=== PATIENT | male | born 1955 | race Caucasian/White ===

== ENCOUNTER 2017-08-20 13:28 | Emergency (ER) | payer OTHER ==
[~2017-08-20] VITALS: Ht 175.3 cm; Wt 102.0 kg
[2017-08-20 13:38] VITALS: BP 151/83
== END 2017-08-20 14:35 | disposition home or self-care (01) ==
LOC: ED 14:00
DX: K02.9 Dental caries, unspecified (principal); K08.89 Other specified disorders of teeth and supporting structures
CPT/HCPCS: 99283

== ENCOUNTER 2017-11-21 13:37 | Emergency (ER) | payer MEDICAID, OTHER ==
[~2017-11-21] VITALS: Ht 175.3 cm; Wt 107.0 kg
[2017-11-21 14:55] VITALS: BP 141/82
== END 2017-11-21 14:58 | disposition home or self-care (01) ==
LOC: ED 14:52
DX: R91.8 Other nonspecific abnormal finding of lung field (principal); J44.1 Chronic obstructive pulmonary disease with (acute) exacerbation
CPT/HCPCS: 71046; 99284

== ENCOUNTER 2018-03-22 13:03 | Emergency (ER) | payer SELFPAY ==
[~2018-03-22] VITALS: Ht 175.3 cm; Wt 110.0 kg
[2018-03-22 13:11] VITALS: BP 143/86
[2018-03-22 13:25] LABS: BASOPHILS # (AUTO) 0.04 x10^3/uL (0-0.1); BASOPHILS % (AUTO) 1 % (0-1); EOSINOPHILS # (AUTO) 0.08 x10^3/uL (0-0.4); EOSINOPHILS % (AUTO) 1 % (1-7); LYMPHOCYTES # (AUTO) 2.25 x10^3/uL (1-3.4); LYMPHOCYTES % (AUTO) 32 % (22-44); MD NO; MEAN CORPUSCULAR HEMOGLOBIN 28.6 pg (27.5-34.5); MEAN CORPUSCULAR HGB CONC 33.8 g/dL (33.2-36.2); MEAN CORPUSCULAR VOLUME 84.5 fL (81-97); MEAN PLATELET VOLUME 8.2 fL (7.4-10.4); MONOCYTES # (AUTO) 0.43 x10^3/uL (0.2-0.8); MONOCYTES % (AUTO) 6 % (2-9); NEUTROPHILS # (AUTO) 4.23 x10^3/uL (1.8-6.8); NEUTROPHILS % (AUTO) 60 % (42-75); PLATELET COUNT 212 x10^3/uL (130-400); RED BLOOD COUNT 6.23 x10^6/uL (4.38-5.82); RED CELL DISTRIBUTION WIDTH 13.5 % (9.4-14.8)
[2018-03-22] MEDS ORDERED: SODIUM CHLORIDE FLUSH 10ML SYR IVF ONE (13:30)
[2018-03-22 13:35] LABS: INTERNATIONAL NORMALIZED RATIO 1.01 (0.93-1.1); PROTHROMBIN TIME 10.7 Seconds (9.6-11.5)
[2018-03-22 13:37] LABS: ALANINE AMINOTRANSFERASE 38 U/L (12-78); ALBUMIN 3.9 g/dL (3.4-5.0); ANION GAP 6 mmol/L (5-15); CALCIUM 8.6 mg/dL (8.5-10.1); CHLORIDE 108 mmol/L (98-107); CREATININE 1.18 mg/dL (0.7-1.3)
[2018-03-22 13:41] LABS: ALKALINE PHOSPHATASE 64 U/L (45-117); BILIRUBIN,TOTAL 0.6 mg/dL (0.2-1.0); TOTAL PROTEIN 7.1 g/dL (6.4-8.2); TROPONIN I < 0.015 ng/mL (0.000-0.045)
[2018-03-22] MEDS ORDERED: OMNIPAQUE 350 MG/ML, 100ML BOTTLE ONE (14:30)
== END 2018-03-22 16:44 | disposition home or self-care (01) ==
LOC: ED 14:38
DX: J44.9 Chronic obstructive pulmonary disease, unspecified (principal); F17.200 Nicotine dependence, unspecified, uncomplicated
CPT/HCPCS: 36415; 71045; 71275; 80053; 83880; 84484; 85025; 85610; 85730; 93005; 99284; Q9967

== ENCOUNTER 2019-02-27 10:58 | Emergency (ER) | payer OTHER ==
[~2019-02-27] VITALS: Ht 175.3 cm; Wt 101.0 kg
[2019-02-27 10:59] VITALS: BP 133/90
[2019-02-27] MEDS ORDERED: HYDROcodone/APAP 5/325 TABLET PO ONE (11:30)
[2019-02-27] MEDS ORDERED: AMOXICILLIN 500 MG CAPSULE PO ONE (11:30)
[2019-02-27] MEDS ORDERED: HYDROcodone/APAP 5/325 TABLET ONE (11:48)
[2019-02-27] MEDS ORDERED: AMOXICILLIN 500 MG CAPSULE ONE (11:51)
--- NOTE | 2019-02-27 12:26 | NUR ---
PT GIVEN DISCHARGE EDUCATION AND DISCHARGED BY ARCELIA CASAS.
== END 2019-02-27 12:27 | disposition home or self-care (01) ==
LOC: ED 12:00
DX: K02.9 Dental caries, unspecified (principal); J44.9 Chronic obstructive pulmonary disease, unspecified; F17.200 Nicotine dependence, unspecified, uncomplicated; F12.90 Cannabis use, unspecified, uncomplicated
CPT/HCPCS: 99283

== ENCOUNTER 2020-10-14 14:11 | Emergency (ER) | payer MEDICARE ==
[~2020-10-14] VITALS: Ht 175.3 cm; Wt 101.0 kg
[2020-10-14 14:37] VITALS: BP 106/77
--- NOTE | 2020-10-14 18:15 | NUR ---
pt keeps coming out of room. pt advised that he will be seen shortly. RN apologized for tyhe wait. pt said he understands and went back to room
[2020-10-14] MEDS ORDERED: NEO/POLY/HC EAR SUSP 10ML RIGHT EAR ONE (19:30)
== END 2020-10-14 20:23 | disposition home or self-care (01) ==
LOC: ED 20:00
DX: H60.311 Diffuse otitis externa, right ear (principal); F17.210 Nicotine dependence, cigarettes, uncomplicated; J44.9 Chronic obstructive pulmonary disease, unspecified
CPT/HCPCS: 99283; 99406